=== PATIENT | female | born 1940 | race Caucasian/White ===

== ENCOUNTER 2021-08-08 12:42 | Observation (INO) | payer MEDICARE, BC ==
[~2021-08-08] VITALS: Ht 152.4 cm; Wt 97.9 kg
[2021-08-08] MEDS ORDERED: FUROSEMIDE20 MG PO (12:54)
[2021-08-08] MEDS ORDERED: POTASSIUM CHLO10 ME8 PO (12:54)
[2021-08-08] MEDS ORDERED: ROXICODONE 55 MG/TAB PO (12:55)
[2021-08-08] MEDS ORDERED: METFORMIN ER500 MG PO (12:55)
[2021-08-08] MEDS ORDERED: DULOXETINE20 MG PO (12:56)
[2021-08-08] MEDS ORDERED: ALENDRONATE SOD70 MG PO (12:56)
[2021-08-08] MEDS ORDERED: LORAZEPAM1 M1 PO (12:56)
[2021-08-08] MEDS ORDERED: HYGROTON 2525 MG/TAB PO (12:56)
[2021-08-08] MEDS ORDERED: LEVOTHYROXINE112 MCG PO (12:56)
[2021-08-08] MEDS ORDERED: ATORVASTATIN CA40 MG PO (12:56)
[2021-08-08 14:08] LABS: BASO # 0.03 (0.02-0.10); EOS # 0.14 (0.04-0.40); EOS % 1.7 % (1.0-5.0); HEMATOCRIT 34.2 % (37.0-47.0); HEMOGLOBIN 11.8 g/dL (12.5-16.0); LYMPH# 2.29 (1.50-4.00); MEAN CELL VOLUME 97 fl (78-100); MEAN CORPUSCULAR HEMOGLOBIN 33 pg (27-31); MEAN CORPUSCULAR HGB CONC 35 g/dL (33-37); MEAN PLATELET VOLUME 8.6 fl (7.4-10.4); MONO # 0.64 (0.20-0.80); NEU # 4.95 (1.40-6.50); RED BLOOD COUNT 3.53 M/mm3 (4.10-5.30); RED CELL DISTRIBUTION WIDTH 13.4 % (11.5-14.5); WHITE BLOOD COUNT 8.1 K/mm3 (4.8-10.8)
[2021-08-08 14:44] LABS: PLATELET COUNT 258 K/mm3 (130-400)
[2021-08-08 14:46] LABS: D-DIMER 0.39 mg/L FEU (0.15-0.50)
[2021-08-08 14:51] LABS: TROPONIN-I < 0.03 ng/mL (<0.030)
[2021-08-08 14:54] LABS: URINE APPEARANCE HAZY; URINE BILIRUBIN NEGATIVE (NEGATIVE); URINE BLOOD NEGATIVE (NEGATIVE); URINE COLOR LIGHT YELLOW; URINE GLUCOSE NEGATIVE (NEGATIVE); URINE KETONE NEGATIVE (NEGATIVE); URINE LEUKOCYTE ESTERASE NEGATIVE (NEGATIVE); URINE NITRATE NEGATIVE (NEGATIVE); URINE PROTEIN(semi-quant) TRACE mg/dL (NEGATIVE); URINE UROBILINOGEN NORMAL (NORMAL); URINE WBC 0-1 /hpf (0-3)
[2021-08-08 15:16] LABS: ALBUMIN 3.6 g/dL (3.4-4.8); POTASSIUM 3.3 mmol/L (3.5-5.1); SODIUM 126 mmol/L (136-145)
[2021-08-08 15:17] LABS: CALCIUM 9.9 mg/dL (8.3-10.5)
[2021-08-08 15:18] LABS: GLUCOSE 130 mg/dL (65-105)
[2021-08-08 15:19] LABS: TOTAL PROTEIN 6.9 g/dL (6.2-8.1)
[2021-08-08 15:20] LABS: TOTAL BILIRUBIN 0.7 mg/dL (0.2-1.2)
[2021-08-08 15:24] LABS: AST-SGOT 21 U/L (5-34)
[2021-08-08 15:25] LABS: ALT/SGPT 27 U/L (0-55)
[2021-08-08 17:26] LABS: CARBON DIOXIDE 20 mmol/L (23-31)
[2021-08-08] MEDS ORDERED: VITAMIN D31250 MC1 PO (18:40)
[2021-08-08] MEDS ORDERED: FLUTICASONE-SA1 EAC3 IH (18:40)
[2021-08-08] MEDS ORDERED: THIAMINE HCL100 M1 PO (18:41)
[2021-08-08] MEDS ORDERED: PROAIR DIGIHAL90 MCG IH (21:44)
[2021-08-08] MEDS ORDERED: DULCOLAX PO (21:45)
[2021-08-08] MEDS ORDERED: MULTIPLE VITAMI1 TA1 (21:46)
[2021-08-08] MEDS ORDERED: ADVAIR DISKUS1 DSK PO (21:47)
[2021-08-08] MEDS ORDERED: ECONAZOLE NIT 130 GM (21:48)
[2021-08-08 22:10] VITALS: BP 148/75
[2021-08-09] VITALS (7 sets, daily range): BP systolic 112–132; BP diastolic 63–75
[2021-08-09 07:58] LABS: CALCIUM 8.9 mg/dL (8.3-10.5)
[2021-08-10 02:14] VITALS: BP 124/75
[2021-08-10 06:21] VITALS: BP 101/64
[2021-08-10 06:45] LABS: CALCIUM 9.1 mg/dL (8.3-10.5)
[2021-08-10 10:06] VITALS: BP 143/69
[2021-08-10] MEDS ORDERED: LASIX20 M1 PO (12:59)
[2021-08-10] MEDS ORDERED: DRIZALMA SPRINK20 MG PO (13:13)
[2021-08-10] MEDS ORDERED: PROVENTIL0.09 MG/A1 IH (13:18)
[2021-08-10 14:00] VITALS: BP 132/74
== END 2021-08-10 15:17 | disposition home or self-care (01) ==
LOC: ED 12:42 → MED/SURG 18:38
PROVIDERS: Physician Assistant; ADMIT Nurse Practitioner Family
DX: R60.0 Localized edema (principal); E87.1 Hypo-osmolality and hyponatremia; E87.6 Hypokalemia; E11.9 Type 2 diabetes mellitus without complications; E83.42 Hypomagnesemia; N17.9 Acute kidney failure, unspecified; J45.909 Unspecified asthma, uncomplicated; E78.5 Hyperlipidemia, unspecified; E03.9 Hypothyroidism, unspecified; F41.9 Anxiety disorder, unspecified; E66.9 Obesity, unspecified; Z90.710 Acquired absence of both cervix and uterus; Z90.89 Acquired absence of other organs; Z79.84 Long term (current) use of oral hypoglycemic drugs; Z79.899 Other long term (current) drug therapy; Z79.891 Long term (current) use of opiate analgesic; Z79.890 Hormone replacement therapy; Z87.891 Personal history of nicotine dependence
CPT/HCPCS: G0378; J3480; J7030

== ENCOUNTER 2022-06-02 14:59 | Emergency (ER) | payer MEDICARE, BC ==
[~2022-06-02 14:59] MED LIST: ADVAIR DISKUS1 DSK PO; ALENDRONATE SOD70 MG PO; ATORVASTATIN CA40 MG PO; DRIZALMA SPRINK20 MG PO; DULCOLAX PO; DULOXETINE20 MG PO; ECONAZOLE NIT 130 GM; FLUTICASONE-SA1 EAC3 IH; FUROSEMIDE20 MG PO; HYGROTON 2525 MG/TAB PO; LASIX20 M1 PO; LEVOTHYROXINE112 MCG PO; LORAZEPAM1 M1 PO; METFORMIN ER500 MG PO; MULTIPLE VITAMI1 TA1; POTASSIUM CHLO10 ME8 PO; PROAIR DIGIHAL90 MCG IH; PROVENTIL0.09 MG/A1 IH; ROXICODONE 55 MG/TAB PO; THIAMINE HCL100 M1 PO; VITAMIN D31250 MC1 PO
[2022-06-02 15:55] LABS: BASO # 0.04 K/mm3 (0.02-0.10); EOS # 0.23 K/mm3 (0.04-0.40); EOS % 2.4 % (1.0-5.0); HEMATOCRIT 38.1 % (37.0-47.0); HEMOGLOBIN 13.1 g/dL (12.5-16.0); LYMPH# 2.67 K/mm3 (1.50-4.00); MEAN CELL VOLUME 97 fl (78-100); MEAN CORPUSCULAR HEMOGLOBIN 33 pg (27-31); MEAN CORPUSCULAR HGB CONC 34 g/dL (33-37); NEU # 6.06 K/mm3 (1.40-6.50); PLATELET COUNT 296 K/mm3 (130-400); RED BLOOD COUNT 3.95 M/mm3 (4.10-5.30); RED CELL DISTRIBUTION WIDTH 14.2 % (11.5-14.5); WHITE BLOOD COUNT 9.6 K/mm3 (4.8-10.8)
[2022-06-02 16:05] LABS: ALBUMIN 4.1 g/dL (3.4-4.8); POTASSIUM 3.4 mmol/L (3.5-5.1); SODIUM 132 mmol/L (136-145)
[2022-06-02 16:07] LABS: CALCIUM 9.6 mg/dL (8.3-10.5)
[2022-06-02 16:08] LABS: GLUCOSE 186 mg/dL (65-105); TOTAL PROTEIN 6.7 g/dL (6.2-8.1)
[2022-06-02 16:09] LABS: CARBON DIOXIDE 25 mmol/L (23-31)
[2022-06-02 16:10] LABS: PARTIAL THROMBOPLASTIN TIME 20.4 SECONDS (21.0-32.0); PROTHROMBIN TIME 10.2 SECONDS (9.0-12.0); TOTAL BILIRUBIN 0.9 mg/dL (0.2-1.2)
[2022-06-02 16:13] LABS: AST-SGOT 17 U/L (5-34)
[2022-06-02 16:14] LABS: ALT/SGPT 23 U/L (0-55)
[2022-06-02 16:22] LABS: TROPONIN-I < 0.030 ng/mL (<0.030)
[2022-06-02 16:50] LABS: URINE APPEARANCE CLEAR; URINE BILIRUBIN NEGATIVE (NEGATIVE); URINE BLOOD NEGATIVE (NEGATIVE); URINE COLOR YELLOW; URINE GLUCOSE NEGATIVE (NEGATIVE); URINE KETONE NEGATIVE (NEGATIVE); URINE LEUKOCYTE ESTERASE TRACE (NEGATIVE); URINE MUCUS PRESENT (NOT PRESENT); URINE NITRATE NEGATIVE (NEGATIVE); URINE PROTEIN(semi-quant) TRACE (NEGATIVE); URINE UROBILINOGEN NORMAL (NORMAL); URINE WBC 0-1 /hpf (0-3)
[2022-06-02] MEDS ORDERED: PRAVASTATIN SOD80 MG PO (17:42)
[2022-06-02 19:35] VITALS: BP 153/76
== END 2022-06-02 19:35 | disposition short-term general hospital (02) ==
LOC: ED 14:59
PROVIDERS: Nurse Practitioner
DX: I63.9 Cerebral infarction, unspecified (principal); E87.6 Hypokalemia; E11.22 Type 2 diabetes mellitus with diabetic chronic kidney disease; N18.9 Chronic kidney disease, unspecified; E87.1 Hypo-osmolality and hyponatremia; E66.9 Obesity, unspecified; Z79.84 Long term (current) use of oral hypoglycemic drugs; Z87.891 Personal history of nicotine dependence; Z28.310 Unvaccinated for COVID-19